=== PATIENT | male | born 1985 | race Caucasian/White ===

== ENCOUNTER 2023-02-20 12:53 | Emergency (ER) | payer OTHER ==
[~2023-02-20] VITALS: Ht 193 cm; Wt 104.5 kg
[2023-02-20 13:18] VITALS: BP 150/105; PULSE 84; RESP 16; TEMP 98.1
[2023-02-20] MEDS ORDERED: RABIES VACCINE, HUMAN DIPLOID/PF 2.5 UNITS/ML VIAL IM. ONE (14:30)
== END 2023-02-20 14:51 | disposition home or self-care (01) ==
LOC: EMS 12:56
DX: S61.451D Open bite of right hand, subsequent encounter (principal); Z23 Encounter for immunization; W55.01XD Bitten by cat, subsequent encounter
CPT/HCPCS: 90471; 90675; 99281

== ENCOUNTER 2023-02-24 01:46 | Emergency (ER) | payer OTHER ==
[~2023-02-24] VITALS: Ht 193 cm; Wt 115.0 kg
[2023-02-24 01:54] VITALS: BP 168/77; PULSE 100; RESP 17; TEMP 98.7
[2023-02-24] MEDS ORDERED: RABIES VACCINE, HUMAN DIPLOID/PF 2.5 UNITS/ML VIAL IM. ONE (02:45)
== END 2023-02-24 03:00 | disposition home or self-care (01) ==
LOC: EMS 01:48
DX: S61.459D Open bite of unspecified hand, subsequent encounter (principal); Z29.14 Encounter for prophylactic rabies immune globulin; W55.01XD Bitten by cat, subsequent encounter
CPT/HCPCS: 90471; 90675; 99281

== ENCOUNTER 2023-03-03 03:50 | Emergency (ER) | payer OTHER ==
[~2023-03-03] VITALS: Ht 193 cm; Wt 104.5 kg
[2023-03-03 03:53] VITALS: BP 136/58; PULSE 100; RESP 16; TEMP 98.1
[2023-03-03] MEDS ORDERED: RABIES VACCINE, HUMAN DIPLOID/PF 2.5 UNITS/ML VIAL IM. ONE (04:15)
== END 2023-03-03 05:01 | disposition home or self-care (01) ==
LOC: EMS 03:58
DX: S60.57 Other superficial bite of hand (principal); Z29.14 Encounter for prophylactic rabies immune globulin; W55.01XD Bitten by cat, subsequent encounter
CPT/HCPCS: 90471; 90675; 99281